=== PATIENT | female | born 1990 | race Caucasian/White ===

== ENCOUNTER 2016-03-15 22:21 | Emergency (ER) | payer SELFPAY ==
[2016-03-15] MEDS ORDERED: Clindamycin 600 MG IVPREMIX(* 600 MG/50 ML SDV IV ONE (22:58)
[2016-03-15] MEDS ORDERED: NS 0.9% 1000 ML* 1,000 ML IV ONE (23:00)
[2016-03-16] MEDS ORDERED: Ketorolac INJ* 30 MG/ML 1 ML VIAL IV PUSH ONE (00:07)
[2016-03-16 00:31] LABS: Hematocrit 43 % (35-47); Hemoglobin 14.6 g/dl (12.0-16.0); Mean Corpuscular HGB Conc 34 g/dl (31-36); Mean Corpuscular Hemoglobin 30 pg (27-31); Mean Corpuscular Volume 89 fL (80-97); Mean Platelet Volume 8 um3 (7.4-10.4); Red Blood Count 4.85 10^6/ul (4.0-5.4); Red Cell Distribution Width 13 % (10.5-15); White Blood Count 7.9 10^3/ul (3.5-10.8)
[2016-03-16 00:36] LABS: Mono Internal Control QC Line Present
[2016-03-16 00:48] LABS: Albumin 4.1 g/dL (3.2-5.2); BUN/Creatinine Ratio 8.6 (8-20); C Reactive Protein 83.63 mg/L (< 5.00); Calcium 9.1 mg/dL (8.6-10.3); EGFR African American 94.5 (>60); EGFR Non-African American 73.5 (>60); Globulin 2.9 g/dL (2-4); Potassium 4.1 mmol/L (3.5-5.0); Total Bilirubin 0.5 mg/dL (0.2-1.0)
--- NOTE | 2016-03-16 01:41 | UC ---
Throat Pain/Nasal Horacio HPI - HPI Summary HPI Summary: THREE DAYS OF WORSENING LEFT SIDED TONSILLAR SWELLING WITH WHITE SPOTS, SORE THROAT. OCCASION LOW GRADE FEVER. NO DIFFICULTY BREATHING. NO LOC. NO EAR ACHE. NO RASHES. NO MUSCLE ACHES. - History of Current Complaint Chief Complaint: EDThroatPain Stated Complaint: POSSIBLE STREP//WHITE SPOTS IN BACK OFTHROAT Time Seen by Provider: 03/15/16 22:33 Hx Obtained From: Patient, Family/Fisher Gill Net Onset/Duration: Gradual Onset, Lasting Days, Worse Since - DAILY Severity: Moderate Pain Intensity: 5 Cough: None Associated Signs & Symptoms: Positive: Dysphagia, Hoarseness, Fever - NILD. Negative: FB Sensation, Drooling, Wheezing, Sinus Discomfort, Nasal Discharge, Vomiting, Rash - Epiglottits Risk Factors Epiglottis Risk Factors: Negative - Allergies/Home Medications Allergies/Adverse Reactions: Allergies Allergy/AdvReac Type Severity Reaction Status Date / Time Erythromycin Allergy Rash Verified 12/03/13 08:37 Procaine [From Novocain] Allergy GI Upset Verified 09/20/15 14:19 PMH/Surg Hx/FS Hx/Imm Hx Previously Healthy: Yes Endocrine History Of: Denies: Diabetes Cardiovascular History Of: Denies: Hypertension, Pacemaker/ICD Respiratory History Of: Denies: Asthma GI/ History Of: Denies: Renal Disease - Surgical History Surgical History: Yes Surgery Procedure, Year, and Place: BLADDER DIVERTICULECTOMY AT 9 YRS OLD; GASTROSCOPY; - Family History Known Family History: Negative: Respiratory Disease - Social History Occupation: Employed Full-time Lives: With Family Alcohol Use: Occasionally Substance Use Type: None Smoking Status (MU): Never Smoked Tobacco Review of Systems Constitutional: Fever - INTERMITTENT Skin: Negative Eyes: Negative ENT: Sore Throat Respiratory: Negative Cardiovascular: Negative Gastrointestinal: Negative Genitourinary: Negative Motor: Negative Neurovascular: Negative Musculoskeletal: Negative Neurological: Negative Psychological: Negative All Other Systems Reviewed And Are Negative: Yes Physical Exam Triage Information Reviewed: Yes Appearance: Well-Appearing, No Pain Distress, Well-Nourished Vital Signs: Initial Vital Signs Temp 98.5 F 03/15/16 22:24 Pulse 99 03/15/16 22:24 Resp 18 03/15/16 22:24 BP 141/86 03/15/16 22:24 Pulse Ox 100 03/15/16 22:24 Vital Signs Reviewed: Yes Eye Exam: Normal Eyes: Positive: Conjunctiva Clear ENT: Positive: Hearing grossly normal, TMs normal, Tonsillar swelling - LEFT SIDED UNILATERAL TONSILAR SWELLING WITHOUT UVULAR DEVIATION; AIRWAY FULLY PATENT, Tonsillar exudate - LEFT SIDED TONSILLAR SWELLING WITH EXUDATES Dental Exam: Normal Neck: Positive: Supple, Tenderness @ - LEFT ANTERIOR CERVICAL LN TENDERNESS, Enlarged Nodes @ - LEFT ANTERIOR CERVICAL LN TENDERNESS. Negative: Nuchal Rigidity Respiratory Exam: Normal Respiratory: Positive: Chest non-tender, Lungs clear, Normal breath sounds, No respiratory distress, No accessory muscle use Cardiovascular Exam: Normal Cardiovascular: Positive: RRR, No Murmur, Pulses Normal Abdominal Exam: Normal Abdomen Description: Positive: Nontender, No Organomegaly Musculoskeletal Exam: Normal Musculoskeletal: Positive: Strength Intact, ROM Intact Neurological Exam: Normal Neurological: Positive: Alert, Muscle Tone Normal Psychological Exam: Normal Psychological: Positive: Normal Response To Family Skin Exam: Normal Throat Pain/Nasal Course/Dx - Course Course Of Treatment: DUE TO LEFT SIDED UNILATERAL TONSILLAR SWELLING, I PLACED PATINET ON CLINDAMYCIN AND REFERRED TO DR. GOLD'S OFFICE FOR SPECIALTY CONSULTATION AND EVALUATION. - Differential Dx/Diagnosis Differential Diagnosis/HQI/PQRI: Mononucleosis, Peritonsillar Abscess, Pharyngitis, Tonsillitis Provider Diagnoses: LEFT PERITONSILLAR ABSCESS Discharge - Discharge Plan Condition: Stable Disposition: HOME Prescriptions: Clindamycin Cap(NF) [Cleocin 300 mg Cap(NF)] 300 mg PO TID #30 cap Patient Education Materials: Peritonsillar Abscess (ED) Referrals: [facility] [place] [facility]IAN REFERRAL [Outside] Isra Gold MD [Medical Doctor] - No Primary Care Phys,NOPCP [Primary Care Provider] -
[2016-03-16 01:49] VITALS: BP 124/76
== END 2016-03-16 01:49 | disposition home or self-care (01) ==
LOC: ED 22:21
DX: J36 Peritonsillar abscess (principal); R13.10 Dysphagia, unspecified; R50.9 Fever, unspecified
CPT/HCPCS: 36415; 80053; 85025; 86140; 86308; 96361; 96374; 99284; J1885

== ENCOUNTER → 2018-09-02 10:15 | Day surgery (SDC) | payer OTHER ==
[~2018-09-02 10:15] MED LIST: Buffered Lidocaine 1% SYRIN* 1 ML/SYRINGE INTRADERM ONE; Dexamethasone IV* 4 MG/ML 1 ML (4 MG) IV SLOW PU ONE; Dexamethasone IV* 4 MG/ML 1 ML (4 MG) ONE; DiMENhydriNATE IV* 50 MG/ML VIAL IV PUSH PRN; DiMENhydriNATE IV* 50 MG/ML VIAL ONE; Famotidine IV* 10 MG/ML 2 ML (20 mg) IV ONE; Famotidine IV* 10 MG/ML 2 ML (20 mg) ONE; HYDROcodone/ACETAMIN 5-325 MG* 1 TAB PO PRN; Ketorolac INJ* 30 MG/ML 1 ML VIAL IV PRN; Ketorolac INJ* 30 MG/ML 1 ML VIAL ONE; Lactated Ringers 1000 ML Bag* 1,000 ML IV SCH; Metoclopramide IV* 5 MG/ML 2 ML VIAL IV PRN; Midazolam* 1 MG/ML 2 ML VIAL (2 MG) ONE; Naloxone* 0.4 MG/ML 1 ML VIAL IV PRN; Ondansetron INJ* 2 MG/ML VIAL ONE; Scopolamine 1.5 mg* PATCH TRANSDERM PRN; ceFAZolin 2 GM in NS PREMIX(*) 2 GM/100 ML BAG IVPB ONE; fentaNYL* 50 MCG/ML 2 ML VIAL (100 MCG VIAL) IV PRN; fentaNYL* 50 MCG/ML 2 ML VIAL (100 MCG VIAL) ONE; oxyCODONE/Acetamin 5/325 MG* TAB PO PRN
[2018-09-02 12:24] LABS: Hematocrit 45 % (35-47); Hemoglobin 15.1 g/dL (12.0-16.0); Mean Corpuscular HGB Conc 34 g/dL (31-36); Mean Corpuscular Hemoglobin 30 pg (27-31); Mean Corpuscular Volume 89 fL (80-97); Mean Platelet Volume 7.3 fL (7.4-10.4); Platelet Count 279 10^3/uL (150-450); Red Blood Count 5.04 10^6 /uL (3.70-4.87); Red Cell Distribution Width 13 % (10-15)
[2018-09-02 15:35] VITALS: BP 120/61
--- NOTE | 2018-09-02 20:02 | OP ---
CC: [facility] OPERATIVE REPORT: DATE OF OPERATION: 09/02/18 DATE OF : 89 SURGEON: Isabella Waldron MD. ANESTHESIOLOGIST: Dr. Melo. ANESTHESIA: General endotracheal anesthesia. PRE-OP DIAGNOSIS: Left Bartholin cyst. POST-OP DIAGNOSIS: Left Bartholin cyst. OPERATIVE PROCEDURE: Marsupialization of left Bartholin cyst. ESTIMATED BLOOD LOSS: Less than 20 cc. SPECIMENS: Cyst wall to pathology. FLUIDS: Per Anesthesia. DRAINS: None. FINDINGS: Approximately 3.5 cm in length x 3 cm in width soft cystic mass within the left labia myrna ra. Upon opening, thick mucoid drainage was encountered. Normal-appearing right labia majora. Izzy l-appearing remainder of the perineum. COMPLICATIONS: None. COUNTS: Sponge, lap and needle counts were correct x2. CONDITION: The patient tolerated the procedure well and was brought to the recovery room, awake and in stable condition. DESCRIPTION OF PROCEDURE: The patient was brought to the operating room. When general anesthesia wa s found to be adequate, the patient was prepped and draped in the usual sterile fashion in the dorsal lithotomy position. Time-out was performed. Exam under anesthesia was performed with the above fin dings noted. An approximately 1.5 cm incision was made on the inner aspect of the left labia majora. Cyst wall was encountered. This was incised. There was thick mucoid drainage of a moderate amount of mucoid material. There was no odor. There was no bleeding. The portion of cyst wall was excise d and sent to pathology. The inner aspect of the cyst wall was then sutured to the outer aspect of t he labia using 5 interrupted 2-0 Vicryl sutures. The cyst was explored. There were no loculations. No additional cysts were palpated. Excellent hemostasis was noted. Sponge, lap and needle counts we re correct x2 and the patient was brought to the recovery room, awake and in stable condition. [id number]/[facility] #: [id number]
== END | disposition home or self-care (01) ==
LOC: OR 10:15
PROVIDERS: ATTEND Obstetrics & Gynecology
DX: N75.0 Cyst of Bartholin's gland (principal); Z68.30 Body mass index [BMI] 30.0-30.9, adult
CPT/HCPCS: 36415; 81025; 85027; 86850; 86900; 86901; 88304; J0690; J1100; J1240; J1885; J2250; J2405; J3010